=== PATIENT | female | born 2005 | race Caucasian/White ===

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

== ENCOUNTER 2024-03-09 22:14 | Emergency (ER) | payer SELFPAY ==
[2024-03-09 22:17] VITALS: BP 140/92; PULSE 112; RESP 19; TEMP 97.8; BMI 42.5
[2024-03-09] MEDS ORDERED: ACETAMINOPHEN 325 MG TABLET (FP) ONE (23:08)
[2024-03-09] MEDS: ACETAMINOPHEN 325 MG TABLET (FP) PO ONE (23:17)
== END 2024-03-10 00:24 | disposition home or self-care (01) ==
LOC: JER 22:14
DX: R00.2 Palpitations (principal); R20.0 Anesthesia of skin; R20.2 Paresthesia of skin
CPT/HCPCS: 36415; 84484; 93005; 93010; 99284-25